=== PATIENT | female | born 1945 | race Caucasian/White ===

== ENCOUNTER 2022-02-03 09:26 | Emergency (ER) | payer OTHER ==
[~2022-02-03] VITALS: Ht 154.9 cm; Wt 102.1 kg
[2022-02-03 09:27] VITALS: BP 160/66
--- NOTE | 2022-02-03 09:30 | NUR ---
DOM ALS TO ER BED 7
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
[2022-02-03] MEDS ORDERED: KETOROLAC 30 MG/ML VIAL IM ONE (11:05)
--- NOTE | 2022-02-03 11:06 | NUR ---
Daughter called requesting status update. I advised pt's daughter will recontact with any further updates. Pt's daughter is transportation and requesting to be called upon discharge.
--- NOTE | 2022-02-03 11:14 | NUR ---
PT TAKEN TO XRAY VIA [facility]
--- NOTE | 2022-02-03 11:34 | NUR ---
PT BROUGHT BACK FROM [facility] VIA [facility]
[2022-02-03 12:00] VITALS: BP 145/68
--- NOTE | 2022-02-03 12:41 | NUR ---
Patient discharged with v/s stable. Written and verbal after care instructions FOR ELBOW AND RIB CONTUSION given and explained. Patient verbalized understanding. Ambulatory with by DAUGHTER. All questions addressed prior to discharge. Advised to follow up with PMD.
--- NOTE | 2022-02-03 12:42 | NUR ---
Chart checked and completed. The patient's care was reviewed and supervised by Diamante Cooper RN.
== END 2022-02-03 12:41 | disposition home or self-care (01) ==
LOC: MED 09:26
DX: S20.20XA Contusion of thorax, unspecified, initial encounter (principal); S50.02XA Contusion of left elbow, initial encounter; M17.12 Unilateral primary osteoarthritis, left knee; E11.9 Type 2 diabetes mellitus without complications; I10 Essential (primary) hypertension; Z98.890 Other specified postprocedural states; W19.XXXA Unspecified fall, initial encounter; Y93.89 Activity, other specified; Y92.89 Other specified places as the place of occurrence of the external cause; Y99.8 Other external cause status
CPT/HCPCS: 71101; 73080; 96372; 99284; J1885

== ENCOUNTER 2023-06-12 14:11 | Emergency (ER) | payer OTHER ==
[~2023-06-12] VITALS: Ht 152.4 cm; Wt 93.0 kg
[2023-06-12 16:17] VITALS: BP 152/50; PULSE 74; RESP 18; TEMP 98.5; O2SAT 98
[2023-06-12] MEDS ORDERED: CEPH-588 PO (20:17)
[2023-06-12] MEDS ORDERED: PRED10TA5 PO (20:17)
[2023-06-12] MEDS ORDERED: PRED20TA5 PO (20:17)
== END 2023-06-12 20:23 | disposition home or self-care (01) ==
LOC: MED 14:11
DX: M10.9 Gout, unspecified (principal); L03.116 Cellulitis of left lower limb; L03.115 Cellulitis of right lower limb; Z79.899 Other long term (current) drug therapy
CPT/HCPCS: 73630; 99283

== ENCOUNTER 2023-09-03 10:04 | Inpatient (IN) | payer MEDICARE, OTHER ==
[~2023-09-03] VITALS: Ht 152.4 cm; Wt 95.3 kg
[~2023-09-03 10:04] MED LIST: CEPH-588 PO; PRED10TA5 PO; PRED20TA5 PO
[2023-09-03 10:07] VITALS: BP 158/56; PULSE 90; RESP 18; TEMP 98.1; O2SAT 97
[2023-09-03 11:11] LABS: BASOPHILS % (AUTO) 0.2 % (0.0-2.0); EOSINOPHILS # (AUTO) 0.2 K/uL (0-0.4); EOSINOPHILS % (AUTO) 3.5 % (0.0-4.0); HEMATOCRIT 31.3 % (36-48); HEMOGLOBIN 10.4 g/dL (12.0-16.0); LYMPHOCYTES % (AUTO) 19.5 % (20.5-51.1); MEAN CORPUSCULAR HEMOGLOBIN 30 pg (27-31); MEAN CORPUSCULAR HGB CONC 33 g/dL (33-37); MEAN CORPUSCULAR VOLUME 90.7 fL (80-94); MONOCYTES # (AUTO) 0.4 K/uL (0.8-1.0); MONOCYTES % (AUTO) 7.4 % (1.7-9.3); NEUTROPHILS # (AUTO) 3.5 K/uL (1.8-7.7); NEUTROPHILS % (AUTO) 69.4 % (42.2-75.2); PLATELET COUNT (AUTO) 163 K/uL (140-450); RED BLOOD CELL COUNT(AUTO) 3.45 MIL/uL (4.20-5.40); RED CELL DISTRIBUTION WIDTH 13.5 % (11.6-13.7)
[2023-09-03 11:28] LABS: ANION GAP 11.8 (8-16); CALCIUM 9.4 mg/dL (8.5-10.1); CARBON DIOXIDE 28.6 mmol/L (21-32); CHLORIDE 106 mmol/L (98-107); CREATININE 1.6 mg/dL (0.6-1.3); GLUCOSE 152 mg/dL (74-106); POTASSIUM 4.4 mmol/L (3.5-5.1); SODIUM SERUM 142 mmol/L (136-145); UREA NITROGEN, BLOOD 44 mg/dL (7-18)
[2023-09-03 11:29] LABS: INR 0.97 (0.8-1.2); PARTIAL THROMBOPLASTIN TIME 21.7 secs (22-35.6); PROTHROMBIN TIME 10.2 secs (10.8-13.4)
[2023-09-03 11:35] LABS: ALANINE AMINOTRANSFERASE 10 U/L (12-78); ALBUMIN 3.2 g/dL (3.4-5.0); ALKALINE PHOSPHATASE 78 U/L (50-136); ASPARTATE AMINOTRANSFERASE 14 U/L (15-37); BILIRUBIN,DIRECT 0.1 mg/dL (0.0-0.3); TOTAL BILIRUBIN 0.3 mg/dL (0.0-1.0); TOTAL PROTEIN, SERUM 6.6 g/dL (6.4-8.2)
[2023-09-03] MEDS: ASPIRIN 81 MG TAB.CHEW PO ONE (12:39)
[2023-09-03] MEDS ORDERED: ONDANSETRON 4 MG/2 ML VIAL IVP PRN (12:50)
[2023-09-03] MEDS ORDERED: MELATONIN 3 MG TAB PO PRN (12:50)
[2023-09-03] MEDS ORDERED: POTASSIUM CHLORIDE 10 MEQ TABER PO PRN (12:50)
[2023-09-03] MEDS ORDERED: POLYETHYLENE GLYCOL 17 GM/PKT PO PRN (12:50)
[2023-09-03] MEDS ORDERED: HYDROcodone/APAP 5/325 MG 1 TAB TAB PO PRN (12:50)
[2023-09-03] MEDS ORDERED: MORPHINE SULFATE 2 MG/ML SYR IVP PRN (12:50)
[2023-09-03] MEDS: NACL 0.9% 1,000 ML IV SCH (13:14)
[2023-09-03] MEDS: hydrALAZINE 20 MG/ML VIAL IVP PRN (17:24)
[2023-09-03] MEDS ORDERED: LOSA-272 PO (20:57)
[2023-09-03 22:00] VITALS: BP 128/65; PULSE 61; RESP 18; TEMP 97.7; O2SAT 98
[2023-09-04] VITALS (7 sets, daily range): BP systolic 104–134; BP diastolic 53–71; PULSE 50–71; RESP 18–19; TEMP 97.1–98.2; O2SAT 98–100
[2023-09-04 07:37] LABS: ALANINE AMINOTRANSFERASE 7 U/L (12-78); ALBUMIN 2.8 g/dL (3.4-5.0); ALKALINE PHOSPHATASE 62 U/L (50-136); ANION GAP 12.8 (8-16); ASPARTATE AMINOTRANSFERASE 16 U/L (15-37); CALCIUM 8.6 mg/dL (8.5-10.1); CARBON DIOXIDE 24.9 mmol/L (21-32); CHLORIDE 109 mmol/L (98-107); CREATININE 1.3 mg/dL (0.6-1.3); GLUCOSE 85 mg/dL (74-106); MAGNESIUM 1.7 mg/dL (1.8-2.4); PHOSPHORUS 3.5 mg/dL (2.5-4.9); POTASSIUM 4.7 mmol/L (3.5-5.1); SODIUM SERUM 142 mmol/L (136-145); TOTAL BILIRUBIN 0.3 mg/dL (0.0-1.0); TOTAL PROTEIN, SERUM 5.8 g/dL (6.4-8.2); UREA NITROGEN, BLOOD 37 mg/dL (7-18)
[2023-09-04 07:58] LABS: BASOPHILS % (AUTO) 0.4 % (0.0-2.0); EOSINOPHILS # (AUTO) 0.3 K/uL (0-0.4); EOSINOPHILS % (AUTO) 5.1 % (0.0-4.0); HEMATOCRIT 29.2 % (36-48); HEMOGLOBIN 9.8 g/dL (12.0-16.0); LYMPHOCYTES # (AUTO) 1.6 K/uL (2.5-16.5); LYMPHOCYTES % (AUTO) 25.7 % (20.5-51.1); MEAN CORPUSCULAR HEMOGLOBIN 30 pg (27-31); MEAN CORPUSCULAR HGB CONC 33 g/dL (33-37); MEAN CORPUSCULAR VOLUME 90.4 fL (80-94); MONOCYTES # (AUTO) 0.5 K/uL (0.8-1.0); MONOCYTES % (AUTO) 7.7 % (1.7-9.3); NEUTROPHILS # (AUTO) 3.7 K/uL (1.8-7.7); NEUTROPHILS % (AUTO) 61.1 % (42.2-75.2); PLATELET COUNT (AUTO) 155 K/uL (140-450); RED BLOOD CELL COUNT(AUTO) 3.23 MIL/uL (4.20-5.40); RED CELL DISTRIBUTION WIDTH 13.3 % (11.6-13.7); WHITE BLOOD COUNT (AUTO) 6.1 K/uL (4.8-10.8)
[2023-09-04] MEDS: amLODIPine 5 MG TAB PO SCH (08:26)
[2023-09-04] MEDS: ASPIRIN 81 MG TAB.CHEW PO SCH (08:26)
[2023-09-04] MEDS: MAG SULF 2000 MG/WATER PREMIX 50 ML IV PRN (14:10)
[2023-09-04] MEDS ORDERED: DEXTROSE 50% 50 ML SYR IVP PRN (22:30)
[2023-09-05] VITALS: BP 149/53; PULSE 60; PULSE 69; RESP 18; TEMP 98; O2SAT 99
[2023-09-05 04:00] VITALS: BP 144/37; PULSE 61; PULSE 62; RESP 19; TEMP 97.9; O2SAT 99
[2023-09-05] MEDS: BLOOD GLUCOSE MONITORING 1 DEV DEV FS SCH (06:33)
[2023-09-05 06:36] LABS: BASOPHILS % (AUTO) 0.3 % (0.0-2.0); EOSINOPHILS # (AUTO) 0.2 K/uL (0-0.4); EOSINOPHILS % (AUTO) 4.8 % (0.0-4.0); HEMATOCRIT 28.7 % (36-48); HEMOGLOBIN 9.7 g/dL (12.0-16.0); LYMPHOCYTES # (AUTO) 1.4 K/uL (2.5-16.5); LYMPHOCYTES % (AUTO) 29.2 % (20.5-51.1); MEAN CORPUSCULAR HEMOGLOBIN 31 pg (27-31); MEAN CORPUSCULAR HGB CONC 34 g/dL (33-37); MEAN CORPUSCULAR VOLUME 91.2 fL (80-94); MONOCYTES # (AUTO) 0.4 K/uL (0.8-1.0); MONOCYTES % (AUTO) 8.9 % (1.7-9.3); NEUTROPHILS # (AUTO) 2.8 K/uL (1.8-7.7); NEUTROPHILS % (AUTO) 56.8 % (42.2-75.2); PLATELET COUNT (AUTO) 154 K/uL (140-450); RED BLOOD CELL COUNT(AUTO) 3.15 MIL/uL (4.20-5.40); RED CELL DISTRIBUTION WIDTH 13.1 % (11.6-13.7); WHITE BLOOD COUNT (AUTO) 4.9 K/uL (4.8-10.8)
[2023-09-05 07:30] LABS: ALANINE AMINOTRANSFERASE 8 U/L (12-78); ALBUMIN 2.9 g/dL (3.4-5.0); ALKALINE PHOSPHATASE 64 U/L (50-136); ANION GAP 12.8 (8-16); ASPARTATE AMINOTRANSFERASE 14 U/L (15-37); CALCIUM 8.6 mg/dL (8.5-10.1); CARBON DIOXIDE 25.6 mmol/L (21-32); CHLORIDE 108 mmol/L (98-107); CREATININE 1.3 mg/dL (0.6-1.3); GLUCOSE 86 mg/dL (74-106); MAGNESIUM 1.6 mg/dL (1.8-2.4); PHOSPHORUS 3.8 mg/dL (2.5-4.9); POTASSIUM 4.4 mmol/L (3.5-5.1); SODIUM SERUM 142 mmol/L (136-145); TOTAL BILIRUBIN 0.4 mg/dL (0.0-1.0); UREA NITROGEN, BLOOD 36 mg/dL (7-18)
[2023-09-05 08:00] VITALS: BP 155/71; PULSE 61; PULSE 76; RESP 18; RESP 19; TEMP 97; O2SAT 98
[2023-09-05] MEDS: ACETAMINOPHEN 325 MG TAB PO PRN (08:41)
[2023-09-05] MEDS ORDERED: LOSA-269 PO (12:17)
[2023-09-05] MEDS ORDERED: AMLO-3 PO (12:17)
[2023-09-05] MEDS ORDERED: ATOR20TA40 PO (12:17)
[2023-09-05] MEDS: INSULIN LISPRO SLIDING SCALE 100 UNITS/ML VIAL SUBQ PRN (12:21)
[2023-09-06] MEDS ORDERED: LOSARTAN 25 MG TAB PO SCH (09:00)
[2023-09-06] MEDS ORDERED: ATORVASTATIN 20 MG TAB PO SCH (09:00)
== END 2023-09-05 13:40 | disposition home or self-care (01) | DRG 304 ==
LOC: MED 10:04 → MTU 12:50
PROVIDERS: ADMIT Family Medicine; ATTEND Family Medicine
DX: I16.0 Hypertensive urgency (principal); N17.0 Acute kidney failure with tubular necrosis; J45.901 Unspecified asthma with (acute) exacerbation; E11.22 Type 2 diabetes mellitus with diabetic chronic kidney disease; I12.9 Hypertensive chronic kidney disease with stage 1 through stage 4 chronic kidney disease, or unspecified chronic kidney disease; N18.9 Chronic kidney disease, unspecified; M06.8A Other specified rheumatoid arthritis, other specified site; I49.8 Other specified cardiac arrhythmias; T48.6X5A Adverse effect of antiasthmatics, initial encounter; F19.90 Other psychoactive substance use, unspecified, uncomplicated; Z79.899 Other long term (current) drug therapy; Z86.73 Personal history of transient ischemic attack (TIA), and cerebral infarction without residual deficits; Y92.89 Other specified places as the place of occurrence of the external cause
CPT/HCPCS: 36415; 71045; 78582; 80048; 80053; 80076; 82948; 83735; 83880; 84100; 84484; 85025; 85379; 85610; 85730; 87081; 93005; 96374; 97110; 97116; 99285; A9540; J0360; J1815; J3475